=== PATIENT | male | born 2000 ===

== ENCOUNTER → 2023-01-19 | Outpatient (CLI) | payer BC ==
--- NOTE | 2023-01-19 08:46 | US ---
EXAMINATION TYPE: US groin RT DATE OF EXAM: 01/19/2023 COMPARISON: NONE CLINICAL HISTORY: K40.91. Patient states he felt a bulge in the right inguinal region. No injury nury t patient can remember, but he does go to the gym. TECHNIQUE: Multiple grayscale and color Doppler ultrasounds of the right groin were obtained. FINDINGS/IMPRESSION: Multiple images taken of right groin and area of concern. No prominent hernia visualized at time of scan. Valsalva performed. Normal appearing lymph node seen in right groin wit h short axis = 0.6 cm. No organized fluid collection.
== END | disposition home or self-care (01) ==
LOC: RADUSWWP 07:57
PROVIDERS: ATTEND Surgery
DX: K40.91 Unilateral inguinal hernia, without obstruction or gangrene, recurrent (principal)